=== PATIENT | male | born 1965 | race Two or more races ===

== ENCOUNTER → 2025-03-18 | Outpatient (CLI) | payer OTHER ==
--- NOTE | 2025-03-18 12:41 | DVH ---
Procedure: CT CHEST WITHOUT CONTRAST Reason for study/Clinical History: SCREEN FOR LUNG CANCER Comparison Study: None TECHNIQUE: Multidetector CT of the chest was performed from the lung apices to the upper abdomen with out the use of intravenous contract. Axial, coronal and sagittal multiplanar reformats were performed . Radiation Dose Information: CT Dose: CTDI volume is 7.46 mGy. Dose-length product is 308.78 mGy*cm The dose indicators for CT are the volume Computed Tomography (CT) Dose Index (CTDIvol) and the Dose Length Product (DLP), and are measured in units of mGy and mGy-cm, respectively. These indicators are not patient dose, but values generated from the CT scanner acquisition factors. The report includes radiation exposure data for exposures received during this examination. FINDINGS: Lower neck: Unremarkable. Lungs: No focal consolidation. No suspicious pulmonary nodule. Dependent atelectasis. Heart/Vascular Structures: Normal heart size. No pericardial effusion. Lymph Nodes: No adenopathy Pleura: No pleural effusion or significant pneumothorax. Musculoskeletal: No acute osseous abnormality. Soft tissues: Normal. Upper abdomen: Limited portions of the upper abdomen are unremarkable. IMPRESSION: No acute or suspicious thoracic findings. Lung-RADS Category 1: Continue annual screening with LDCT
== END | disposition home or self-care (01) ==
LOC: XYW 10:06
DX: J98.11 Atelectasis (principal); Z12.2 Encounter for screening for malignant neoplasm of respiratory organs
CPT/HCPCS: 71250